=== PATIENT | female | born 1980 | race Caucasian/White ===

== ENCOUNTER 2017-10-29 01:13 | Emergency (ER) | payer MEDICAID, OTHER ==
[~2017-10-29] VITALS: Ht 182.9 cm; Wt 75.4 kg
[~2017-10-29 01:13] MED LIST: BUSP10 PO; LEXA20TA PO; LURA20TA PO; MEDR4PAK3 PO; METH250T PO; VENTAER INH; ZITH250T PO
[2017-10-29 01:18] VITALS: BP 152/88; PULSE 95; RESP 20; TEMP 98.1; O2SAT 97
[2017-10-29 02:05] VITALS: BP 128/82; PULSE 95; RESP 16; O2SAT 95
[2017-10-29] MEDS ORDERED: CYMB30CA PO (02:08)
[2017-10-29] MEDS ORDERED: GABA100C4 PO (02:10)
[2017-10-29] MEDS ORDERED: BUSP30TA PO (02:10)
--- NOTE | 2017-10-29 02:30 | PD ---
HPI Chief Complaint: Cold / Flu Symptoms Time Seen by Provider: 02:05 Travel History International Travel<30 days: No Contact w/Intl Traveler<30days: No Traveled to known affect area: No History of Present Illness HPI Patient comes in complaining of a 2 day history of sore throat, body aches, no alleviating or aggravating factors. Patient denies any associated factors such as fever, rash, nausea, vomiting, diarrhea, chest pain, abdominal pain. PFSH Past Medical History Asthma: Yes Blood Disorders: No Anxiety: Yes Depression: Yes Heart Rhythm Problems: Yes (Heart murmur) Cancer: No Cardiovascular Problems: Yes Diabetes: No Diminished Hearing: No Endocrine: No Gastrointestinal Disorders: Yes Genitourinary: No Hypertension: Yes Immune Disorder: No Implanted Vascular Access Dvce: No Musculoskeletal: No Neurologic: No Respiratory: Yes Immunizations Current: Yes Tetanus Vaccination: Unknown Influenza Vaccination: No PNEUMOCCOCAL Vaccine (Year): 2 ?: Unknown LMP: 2 WEEKS AGO : 3 Para: 1 Miscarriage: 0 : 2 Ovarian Cysts: Yes (2005) Past Surgical History Gynecologic Surgery: Yes (laproscopic surgery for ruptured left ovarian cyst - 2005) Other Surgery: Yes (LAPROSCOPY, COLONOSCOPY ) Social History Alcohol Use: No Tobacco Use: Yes (06/08 ppd) Substance Use: No Allergies-Medications (Allergen,Severity, Reaction): Coded Allergies: Sulfa (Sulfonamide Antibiotics) (Unverified Allergy, Severe, RASH, 10/29/17 ) penicillin G (Unverified Allergy, Severe, Rash, 10/29/17) Reported Meds & Prescriptions Reported Meds & Active Scripts Active Reported Buspirone (Buspirone HCl) 30 Mg Tab 30 Mg PO BID Gabapentin 100 Mg Cap 100 Mg PO TID Cymbalta DR (Duloxetine HCl) 30 Mg Capdr 30 Mg PO DAILY Physical Exam Narrative GENERAL: SKIN: Warm and dry. HEAD: Atraumatic. Normocephalic. EYES: Pupils equal and round. No scleral icterus. No injection or drainage. ENT: No nasal bleeding or discharge. Mucous membranes pink and moist. Oropharynx is erythematous but without exudate NECK: Trachea midline. No JVD. Anterior cervical lymphadenopathy present CARDIOVASCULAR: Regular rate and rhythm. RESPIRATORY: No accessory muscle use. Clear to auscultation. Breath sounds equal bilaterally. GASTROINTESTINAL: Abdomen soft, non-tender, nondistended. MUSCULOSKELETAL: Extremities without clubbing, cyanosis, or edema. No obvious deformities. NEUROLOGICAL: Awake and alert. No obvious cranial nerve deficits. Motor grossly within normal limits. Five out of 5 muscle strength in the arms and legs. Normal speech. PSYCHIATRIC: Appropriate mood and affect; insight and judgment normal. Data Data Last Documented VS Vital Signs Date Time Temp Pulse Resp B/P (MAP) Pulse Ox O2 Delivery O2 Flow Rate FiO2 10/29/17 02:10 Room Air 10/29/17 02:05 95 16 128/82 (97) 95 10/29/17 01:18 98.1 Orders Orders Group A Rapid Strep Screen (10/29/17 02:18) Influenzae A/B Antigen (10/29/17 02:18) Strep Culture (Group A) (10/29/17 02:28) MDM Medical Decision Making Medical Screen Exam Complete: Yes Emergency Medical Condition: Yes Medical Record Reviewed: Yes Differential Diagnosis Flu versus strep versus viral syndrome Narrative Course Flu negative, strep screen negative however we are awaiting culture Diagnosis Primary Impression: Pharyngitis Patient Instructions: General Instructions, Pharyngitis (ED) Scripts Cephalexin (Keflex) 500 Mg Capsule 500 MG PO Q8H for Infection for 7 Days, #21 CAP 0 Refills Prov: Jovon Vicente MD 10/29/17 Disposition: 01 DISCHARGE HOME Condition: Stable Jovon Vicente MD October 29, 2017 02:30
[2017-10-29] MEDS ORDERED: CEPH-460 PO (03:09)
[2017-10-29] MEDS ORDERED: CEPHALEXIN MONOHYDRATE 500 MG CAP PO ONE (03:15)
[2017-10-29] MEDS ORDERED: LIDOCAINE VISCOUS 2% SOLN 15 ML UDC PO ONE (03:15)
[2017-10-29 03:43] VITALS: BP 116/60
== END 2017-10-29 03:43 | disposition home or self-care (01) ==
LOC: PHED 01:13
DX: J02.9 Acute pharyngitis, unspecified (principal); I10 Essential (primary) hypertension; J45.909 Unspecified asthma, uncomplicated; F32.9 Major depressive disorder, single episode, unspecified; F41.9 Anxiety disorder, unspecified; F17.200 Nicotine dependence, unspecified, uncomplicated
CPT/HCPCS: 87081; 87804; 87880; 99283